=== PATIENT | male | born 1960 | race Caucasian/White ===

== ENCOUNTER 2018-02-25 05:07 | Emergency (ER) | payer OTHER ==
[~2018-02-25] VITALS: Ht 175.3 cm; Wt 104.3 kg
[2018-02-25 06:27] LABS: Urine Bacteria NONE SEEN /hpf (None Seen); Urine Blood Negative /uL (Negative); Urine Mucus FEW (None Seen); Urine Specific Gravity 1.016 (1.001-1.035); Urine WBC <1 /hpf (0 - 3)
[2018-02-25 06:34] LABS: Basophils # (auto) 0 uL; Basophils % (auto) 0.9 % (0.0-2.0); Eosinophils # (auto) 0.2 uL; Eosinophils % (auto) 3.4 % (0.0-7.0); Hematocrit 41.8 % (41.0-53.0); Hemoglobin 14.8 g/dL (13.5-17.5); Lymphocytes # (auto) 1.4 uL; Lymphocytes % (auto) 31.8 % (10.0-50.0); Mean Corpuscular Hemoglobin 31.5 pg (28.0-32.0); Mean Corpuscular Hgb Conc. 35.3 g/dL (32.0-36.0); Mean Corpuscular Volume 89.2 fL (80.0-100.0); Monocytes # (auto) 0.4 uL; Monocytes % (auto) 9.7 % (0.0-12.0); Neutrophils # (auto) 2.5 uL; Neutrophils % (auto) 54.2 % (37.0-80.0); Nucleated Red Blood Cells % 0.2 %; Platelet Count (auto) 175 10^3/uL (140-450); Red Blood Cells 4.69 10^6/uL (4.5-5.90); Red Cell Distribution Width 13.4 % (11.8-14.3); White Blood Cell 4.5 10^3/uL (4.4-10.8)
[2018-02-25 07:02] LABS: Albumin 3.9 g/dL (3.4-5.0); Calcium 8.7 mg/dL (8.5-10.1)
[2018-02-25 07:03] LABS: Salicylate < 1.7 mg/dL (2.8-20.0)
[2018-02-25 07:04] LABS: Amphetamine Screen, Urine NEGATIVE (NEGATIVE); Barbiturate Scree,Urine NEGATIVE (NEGATIVE); Benzodiazephine Screen, Urine NEGATIVE (NEGATIVE); Cannabinoid Screen, Urine NEGATIVE (NEGATIVE); Cocaine Screen, Urine NEGATIVE (NEGATIVE); Opiate Scree,Urine NEGATIVE (NEGATIVE); Phencyclidine Screen, Urine NEGATIVE (NEGATIVE)
[2018-02-25 07:04] LABS: Acetaminophen < 2.0 ug/mL (10-30); Bilirubin, Total 1.6 mg/dL (0.2-1.0); Total Protein 7.4 g/dL (6.4-8.2)
[2018-02-25 11:25] VITALS: BP 134/68
== END 2018-02-25 12:04 | disposition home or self-care (01) ==
LOC: ER 05:14
DX: R45.851 Suicidal ideations (principal); F41.9 Anxiety disorder, unspecified; I10 Essential (primary) hypertension; F31.9 Bipolar disorder, unspecified; Z59.0 Homelessness
CPT/HCPCS: 36415; 80053; 80307; 80329; 81001; 85025; 93005

== ENCOUNTER 2018-02-26 03:47 | Emergency (ER) | payer OTHER ==
[~2018-02-26] VITALS: Ht 172.7 cm; Wt 95.3 kg
[2018-02-26 05:23] LABS: Urine Bacteria NONE SEEN /hpf (None Seen); Urine Blood Negative /uL (Negative); Urine Specific Gravity 1.015 (1.001-1.035); Urine WBC <1 /hpf (0 - 3)
[2018-02-26 05:33] LABS: Amphetamine Screen, Urine NEGATIVE (NEGATIVE); Barbiturate Scree,Urine NEGATIVE (NEGATIVE); Benzodiazephine Screen, Urine NEGATIVE (NEGATIVE); Cannabinoid Screen, Urine NEGATIVE (NEGATIVE); Cocaine Screen, Urine NEGATIVE (NEGATIVE); Opiate Scree,Urine NEGATIVE (NEGATIVE); Phencyclidine Screen, Urine NEGATIVE (NEGATIVE)
[2018-02-26 07:10] LABS: Acetaminophen < 2.0 ug/mL (10-30); Salicylate < 1.7 mg/dL (2.8-20.0)
[2018-02-26 07:14] LABS: Basophils # (auto) 0 uL; Eosinophils # (auto) 0.1 uL; Eosinophils % (auto) 3.1 % (0.0-7.0); Hematocrit 40.2 % (41.0-53.0); Lymphocytes # (auto) 1.3 uL; Lymphocytes % (auto) 29.9 % (10.0-50.0); Mean Corpuscular Hgb Conc. 34.7 g/dL (32.0-36.0); Mean Corpuscular Volume 89.3 fL (80.0-100.0); Monocytes # (auto) 0.4 uL; Monocytes % (auto) 10.5 % (0.0-12.0); Neutrophils # (auto) 2.4 uL; Neutrophils % (auto) 55.5 % (37.0-80.0); Nucleated Red Blood Cells % 0.1 %; Platelet Count (auto) 165 10^3/uL (140-450); Red Cell Distribution Width 13.7 % (11.8-14.3); White Blood Cell 4.3 10^3/uL (4.4-10.8)
[2018-02-26 07:16] LABS: Albumin 3.7 g/dL (3.4-5.0); Bilirubin, Total 1.2 mg/dL (0.2-1.0); Calcium 8.3 mg/dL (8.5-10.1); Potassium 4.8 mmol/L (3.5-5.1)
[2018-02-26] MEDS ORDERED: SERTRALINE HCL 50 MG TAB PO ONE (08:00)
[2018-02-26] MEDS ORDERED: amLODIPine BESYLATE 5 MG TAB PO ONE (08:00)
[2018-02-26] MEDS ORDERED: hydrALAZINE HCL 10 MG TAB PO ONE (08:15)
[2018-02-27] MEDS ORDERED: OMEP20TA PO (09:53)
[2018-02-27] MEDS ORDERED: AMLO5TAB13 PO (09:53)
[2018-02-27] MEDS ORDERED: MIRT30TA PO (09:53)
[2018-02-27] MEDS ORDERED: HYDR10TA26 PO (09:53)
[2018-02-27] MEDS ORDERED: DIVA250T61 PO (09:53)
[2018-02-27] MEDS ORDERED: LOSA-46 PO (09:56)
[2018-02-27] MEDS: carBAMazepine 200 MG TAB PO SCH (10:29)
[2018-02-27] MEDS: amLODIPine BESYLATE 5 MG TAB PO SCH (10:29)
[2018-02-27] MEDS: LOSARTAN POTASSIUM 50 MG TAB PO SCH (10:29)
[2018-02-27] MEDS: hydrALAZINE HCL 10 MG TAB PO SCH ×2 (10:29→23:06)
[2018-02-27] MEDS: SERTRALINE HCL 50 MG TAB PO SCH (10:29)
[2018-02-27] MEDS ORDERED: MIRTAZAPINE 30 MG TAB PO SCH (22:00)
[2018-02-28] MEDS: hydrALAZINE HCL 10 MG TAB PO SCH (10:30)
[2018-02-28] MEDS: LOSARTAN POTASSIUM 50 MG TAB PO SCH (10:30)
[2018-02-28] MEDS: amLODIPine BESYLATE 5 MG TAB PO SCH (10:30)
[2018-02-28] MEDS: SERTRALINE HCL 50 MG TAB PO SCH (10:30)
[2018-02-28] MEDS: carBAMazepine 200 MG TAB PO SCH (10:30)
[2018-02-28 12:57] LABS: Carbamazepine (Tegretol) 2.8 ug/mL (4-12)
[2018-02-28 17:15] VITALS: BP 134/83
== END 2018-02-28 17:38 ==
LOC: ER 03:51
DX: F31.9 Bipolar disorder, unspecified (principal); F41.9 Anxiety disorder, unspecified; Z59.0 Homelessness; I10 Essential (primary) hypertension
CPT/HCPCS: 36415; 71045; 80053; 80156; 80164; 80307; 80320; 80329; 81001; 85025; 93005